=== PATIENT | female | born 1990 | race Caucasian/White ===

== ENCOUNTER 2020-07-10 12:56 | Outpatient (CLI) | payer OTHER, SELFPAY ==
--- NOTE | ~2020-07-10 | MR_ITS ---
EXAMINATION: MR wrist RT w con DATE: 07/10/2020 14:51 INDICATION: Right hand paresthesias. Right hand pain. TECHNIQUE: Magnetic resonance imaging (MRI) of the wrist was performed without intravenous contrast a fter intra-articular injection of contrast in the radiocarpal compartment (MR arthrogram). Sequences performed include coronal T1-weighted FS FSE, T2-weighted FS FSE, and axial GRE, axial T2-weighted FS FSE and T1-weighted FSE, and sagittal T2-weighted FS FSE and T1-weighted FS FSE. COMPARISON: None FINDINGS: Intrinsic ligaments: Scapholunate ligament and lunotriquetral ligament are normal. There is no penetration of contrast to the midcarpal compartment. Triangular fibrocartilage complex (TFCC): There is a full-thickness perforation of triangular fibrocartilage with passage of contrast to the di stal radioulnar joint. Extensor wrist: The extensor tendons are normal. There was iatrogenic placement of contrast in the tendon sheaths of the second extensor compartment. Flexor wrist: The flexor tendons are normal. Median nerve is normal. Guyon's canal: Ulnar nerve is normal. Bones/other: Bone alignment is normal. Joint spaces are normal. There is an 8 x 3 x 3 mm multiloculated ganglion c yst dorsal to capitate of uncertain origin. IMPRESSION: 1. Full-thickness perforation of triangular fibrocartilage. 2. 8 x 3 x 3 mm multiloculated ganglion cyst dorsal to capitate of uncertain origin. Reviewed, dictated and finalized at location A. IMPRESSION: 1. Full-thickness perforation of triangular fibrocartilage. 2. 8 x 3 x 3 mm multiloculated ganglion cyst dorsal to capitate of uncertain or igin.
--- NOTE | ~2020-07-10 | XR_ITS ---
EXAMINATION: XR fl inj wrist RT for MR/CT DATE: 07/10/2020 14:00 INDICATION: Right wrist pain. TECHNIQUE: A time-out was performed to verify the patient's name, date of , and procedure to b e performed. The procedure including the risks, benefits, and alternatives was discussed with the pat ient. Risks discussed included bleeding and infection. The patient understood the risks and agreed to proceed. The skin overlying the right radioscaphoid joint was prepped and draped in usual sterile fa shion. Anesthetic was administered with 1% lidocaine subcutaneously. A 23 G needle was advanced und er fluoroscopic guidance into the joint. Subsequently, injectate consisting of 2 mL of 1:200 Multiha nce, 1:4 1% lidocaine, and 1:4 Omnipaque 240 was instilled. The needle was removed and the entry sit e was cleaned and dressed. There were no immediate complications. Fluoroscopy exposure time was 0.1 minutes. The total number of images was 2. FINDINGS: Real-time fluoroscopy demonstrates the needle and contrast in the radioscaphoid joint. IMPRESSION: 1. Successful right radioscaphoid joint injection of contrast for subsequent MR arthrography. Reviewed, dictated and finalized at location A.
== END 2020-07-10 12:57 | disposition home or self-care (01) ==
PROVIDERS: PCP Family Medicine; Visit Provider Internal Medicine
DX: R20.2 Paresthesia of skin (principal); R29.898 Other symptoms and signs involving the musculoskeletal system; M25.531 Pain in right wrist; S63.591A Other specified sprain of right wrist, initial encounter; M67.431 Ganglion, right wrist
CPT/HCPCS: 20605; 73222; 77002; A9577; Q9966

== ENCOUNTER 2021-05-27 15:24 | Emergency (ER) | payer OTHER, SELFPAY ==
--- NOTE | 2021-05-27 15:27 | ED.EYEPROB ---
HPI - Eye Problem General Chief complaint: Eye Problems Stated complaint: eye irritation Time Seen by Provider: 05/27/21 15:35 Source: patient and RN notes reviewed Mode of arrival: ambulatory Limitations: no limitations History of Present Illness HPI Narrative: 30-year-old female presents with concern for left eye irritation, drainage, eyelid swelling. She denies pain, foreign body, injury. She denies nasal congestion, rhinorrhea, sore throat, fever. Denies vision changes. chief complaint: eye redness Related Data Home Medications Medication Instructions Recorded Confirmed dextroamphetamine-amphetamine 10 mg PO DAILY 05/27/21 05/27/21 zolpidem 10 mg PO DAILY 05/27/21 05/27/21 Allergies Allergy/AdvReac Type Severity Reaction Status Date / Time nitrofurantoin Allergy Intermediate Other Verified 05/27/21 15:34 Penicillins Allergy Unknown RASH Verified 05/27/21 15:34 Sulfa (Sulfonamide Allergy Unknown MUSCLE Verified 05/27/21 15:34 Antibiotics) SORENESS, N/V Review of Systems Review of Systems: Narrative: CONSTITUTIONAL: Denies malaise, chills, sweats, or fever. EYES: Denies visual changes. Reports left eye irritation, redness, discharge. ENT: Denies rhinorrhea, congestion, sinus pain, otalgia or sore throat. CARDIOVASCULAR: Denies chest pain, palpitations, or edema. RESPIRATORY: Denies cough or dyspnea. SKIN: Denies rash or itching. NEUROLOGIC: Denies headache. All systems reviewed & are unremarkable except as noted in HPI and below PMFSH Social History Social History Gender identity (if verbalized by the patient): Female Comments At time of signature, agree with nursing past medical, surgical, social and family history. There is no relevant family history pertinent to the presenting complaint Exam Narrative: Exam Narrative: GENERAL: Well-appearing, well-nourished, and in no acute distress. HEAD: Normocephalic, atraumatic. EYES: PERRLA and EOMI. No nystagmus. Left eye sclera conjunctive injected, mild superficial upper lid edema. Right eye not injected ENT: Nares clear. Mucous membranes moist. NECK: Supple. CHEST: No respiratory distress. Speaks in full sentences. HEART: Regular rate and rhythm. SKIN: Warm, dry, no rash. NEURO: Alert and oriented x3. PSYCH: Normal mood and affect Course Course Emergency Course: Patient is aware of diagnosis, understands and agrees to treatment plan. Anticipatory guidance given. Patient agrees to follow-up as directed and is aware of reasons to seek care at the emergency department. Portions of this record may have been created with voice recognition software Vital Signs Vital signs: Reviewed. MDM - Eye Problem MDM Narrative Medical decision making narrative: Consideration of the following conditions may be warranted for the presenting problem, they are not final diagnoses: Bacterial conjunctivitis, allergic conjunctivitis, viral conjunctivitis, foreign body, blepharitis, chalazion, hordeolum, corneal abrasion, preseptal cellulitis, orbital cellulitis. No evidence of proptosis, ophthalmoplegia, vision loss, pain with eye movement. Exam findings show no acute concerns or changes; patient is non-toxic appearing and is in no distress. Patient is appropriate for outpatient treatment and follow-up. Critical Care Time Critical Care Time Critical Care Time: No Discharge Plan Discharge Clinical Impression: Conjunctivitis Qualifiers: Conjunctivitis type: acute Acute conjunctivitis type: bacterial Laterality: left Qualified Code(s): H10.32 - Unspecified acute conjunctivitis, left eye Patient Disposition: Home, Self-Care Condition: Stable Instructions: Antibiotic Form, Conjunctivitis (ED) Additional Instructions: Do not touch or rub your eye. Use a warm or cool washcloth on your eye for comfort Use eyedrops as directed Practice good handwashing and hygiene to prevent spread of infection You may take Tylenol or ibuprofen for pain Follow-up wit
[2021-05-27 15:32] VITALS: BP 117/76; PULSE 84; RESP 16; TEMP 36.9; O2SAT 99
== END 2021-05-27 15:42 | disposition home or self-care (01) ==
PROVIDERS: Emergency Provider Nurse Practitioner; PCP Family Medicine
DX: H10.32 Unspecified acute conjunctivitis, left eye (principal); F90.9 Attention-deficit hyperactivity disorder, unspecified type
CPT/HCPCS: 99213; G0463